=== PATIENT | male | born 1960 | race African-American/Black ===

== ENCOUNTER 2022-02-04 16:29 | Inpatient (IN) | payer MEDICARE, MEDICAID ==
[~2022-02-04] VITALS: Ht 170.2 cm; Wt 95.7 kg
[~2022-02-04 16:29] MED LIST: ATOR20TA65 MT; CALC667C PO; CARV12.545 PO; DILT240T12 MT; DOXA1TAB2 MT; FOLI-43 PO; HYDR-4135 PO; HYDR100T26 PO; SODI650T PO
[2022-02-04 17:11] LABS: BASOPHILS % 0.3 % (0.0-2.0); EOSINOPHILS % 1.2 % (0.0-5.0); HEMATOCRIT. 23.8 % (42.0-52.0); HEMOGLOBIN. 8.1 g/dL (14.0-18.0); LYMPHOCYTES % 11.4 % (20.0-50.0); MEAN CORPUSCULAR HEMOGLOBIN 29.4 pg (28.0-32.0); MEAN CORPUSCULAR VOLUME 86.2 fL (80.0-94.0); MEAN PLATELET VOLUME 9.1 fl (7.4-10.4); NEUTROPHILS % 81.1 % (40.0-76.0); PLATELET 164 x1000/uL (130-400); RED BLOOD CELL COUNT 2.76 mill/uL (4.7-6.1); RED CELL DISTRIBUTION WIDTH 17.7 % (11.6-14.6)
[2022-02-04 17:17] LABS: CHLORIDE 101 mEq/L (98-107)
[2022-02-05] MEDS ORDERED: ASPIRIN 81MG TABLET PO ONE (04:00)
[2022-02-05] MEDS ORDERED: NITROGLYCERIN 0.4MG TABLET SL SL PRN (04:00)
[2022-02-05] MEDS ORDERED: DEXTROSE 50% WATER 50ML SYRINGE IV PRN (05:00)
[2022-02-05 05:03] VITALS: BP 133/56
[2022-02-05 05:22] VITALS: BP 133/56
[2022-02-05] MEDS: HYDRALAZINE HCL 50MG TABLET PO SCH ×3 (06:03→22:00)
[2022-02-05] MEDS: BLOOD SUGAR DIAGNOSTIC STRIP TEST SCH ×2 (06:06→11:41)
[2022-02-05] MEDS: INSULIN LISPRO 100 UNITS/ML SUBCUT SCH ×2 (06:06→11:41)
[2022-02-05 08:00] VITALS: BP 135/58
[2022-02-05] MEDS: CARVEDILOL 12.5MG TABLET PO SCH ×2 (09:35→21:00)
[2022-02-05] MEDS: DILTIAZEM HCL 120MG CAPSULE CD 24HR PO SCH (09:35)
[2022-02-05] MEDS: FOLIC ACID 1MG TABLET PO SCH (09:35)
[2022-02-05 09:59] LABS: BASOPHILS % 0.5 % (0.0-2.0); EOSINOPHILS % 1.8 % (0.0-5.0); HEMATOCRIT. 24.6 % (42.0-52.0); HEMOGLOBIN. 8.2 g/dL (14.0-18.0); LYMPHOCYTES % 9.1 % (20.0-50.0); MEAN CORPUSCULAR HEMOGLOBIN 28.8 pg (28.0-32.0); MEAN PLATELET VOLUME 9.4 fl (7.4-10.4); MONOCYTES % 5.4 % (2.0-8.0); NEUTROPHILS % 83.2 % (40.0-76.0); PLATELET 164 x1000/uL (130-400); RED BLOOD CELL COUNT 2.83 mill/uL (4.7-6.1); RED CELL DISTRIBUTION WIDTH 17.5 % (11.6-14.6)
[2022-02-05 10:27] LABS: PHOSPHORUS 3.9 mg/dL (2.5-4.9)
[2022-02-05 12:00] VITALS: BP 140/69
[2022-02-05] MEDS ORDERED: LIDOCAINE HCL 1% 10 MG/ML 10ML VIAL ONE (13:31)
[2022-02-05 16:00] VITALS: BP 142/66
[2022-02-05] MEDS: FUROSEMIDE 100MG/10ML VIAL IVP SCH ×3 (16:16→21:00)
[2022-02-05] MEDS ORDERED: IPRATROPIUM/ALBUTEROL 0.5-3(2.5)MG/3ML NEB HHN PRN (17:30)
[2022-02-05 18:07] LABS: INR 1.2; PARTIAL THROMBOPLASTIN TIME 34.7 sec (23.4-31.0); PROTHROMBIN TIME 12.4 sec (9.6-11.0)
[2022-02-05 18:56] LABS: HEPATITIS B SURFACE ANTIGEN NEGATIVE
[2022-02-05 20:00] VITALS: BP 142/67
[2022-02-05] MEDS ORDERED: EPOETIN ALFA 10000UNITS/ML VIAL SUBCUT NR (21:00)
[2022-02-05] MEDS: DOXAZOSIN MESYLATE 2MG TABLET PO SCH (21:00)
[2022-02-05] MEDS: ATORVASTATIN CALCIUM 20MG TABLET PO SCH (21:00)
[2022-02-06] VITALS: BP 148/67
[2022-02-06 04:00] VITALS: BP 141/54
[2022-02-06] MEDS: HYDRALAZINE HCL 50MG TABLET PO SCH ×3 (05:19→21:35)
[2022-02-06 07:17] LABS: CLARITY URINE CLOUDY (CLEAR); COLOR URINE YELLOW (YELLOW); KETONES URINE TRACE (NEGATIVE); LEUKOCYTE ESTERASE URINE NEGATIVE (NEGATIVE); NITRITE URINE NEGATIVE (NEGATIVE); OCCULT BLOOD URINE NEGATIVE (NEGATIVE); PROTEIN URINE 3+ (NEGATIVE); SPECIFIC GRAVITY URINE 1.017 (1.005-1.030); UROBILINOGEN URINE 0.2 E.U./dL (0.2-1.0)
[2022-02-06 07:20] LABS: BASOPHILS % 0.4 % (0.0-2.0); EOSINOPHILS % 1.5 % (0.0-5.0); HEMATOCRIT. 24.1 % (42.0-52.0); HEMOGLOBIN. 7.8 g/dL (14.0-18.0); LYMPHOCYTES % 10.2 % (20.0-50.0); MEAN CORPUSCULAR HEMOGLOBIN 28.1 pg (28.0-32.0); MEAN CORPUSCULAR VOLUME 86.6 fL (80.0-94.0); MEAN PLATELET VOLUME 9.4 fl (7.4-10.4); MONOCYTES % 6.2 % (2.0-8.0); NEUTROPHILS % 81.7 % (40.0-76.0); PLATELET 159 x1000/uL (130-400); RED BLOOD CELL COUNT 2.78 mill/uL (4.7-6.1); RED CELL DISTRIBUTION WIDTH 17.5 % (11.6-14.6)
[2022-02-06 07:45] LABS: PHOSPHORUS 3.7 mg/dL (2.5-4.9)
[2022-02-06 08:00] VITALS: BP 134/58
[2022-02-06] MEDS: CARVEDILOL 12.5MG TABLET PO SCH ×2 (09:00→21:33)
[2022-02-06] MEDS ORDERED: POTASSIUM CHLORIDE 20MEQ TABLET SR PO NR (09:00)
[2022-02-06] MEDS: DILTIAZEM HCL 120MG CAPSULE CD 24HR PO SCH (09:00)
[2022-02-06] MEDS: FOLIC ACID 1MG TABLET PO SCH (09:11)
[2022-02-06] MEDS: FUROSEMIDE 100MG/10ML VIAL IVP SCH ×2 (09:12→21:33)
[2022-02-06] MEDS ORDERED: LACTULOSE 20G/30ML UDC PO NR (11:00)
[2022-02-06 15:57] VITALS: BP 139/58
[2022-02-06 20:00] VITALS: BP 166/67
[2022-02-06] MEDS ORDERED: EPOETIN ALFA 10000UNITS/ML VIAL SUBCUT SCH (21:00)
[2022-02-06] MEDS: EPOETIN ALFA-EPBX 10,000 UNIT/ML VIAL SUBCUT SCH (21:33)
[2022-02-06] MEDS: ATORVASTATIN CALCIUM 20MG TABLET PO SCH (21:33)
[2022-02-06] MEDS: DOXAZOSIN MESYLATE 2MG TABLET PO SCH (21:35)
[2022-02-07] VITALS: BP 158/56
[2022-02-07 04:00] VITALS: BP 156/57
[2022-02-07] MEDS: HYDRALAZINE HCL 50MG TABLET PO SCH (06:08)
[2022-02-07 08:00] VITALS: BP 158/63
[2022-02-07 08:09] LABS: BASOPHILS % 0.6 % (0.0-2.0); EOSINOPHILS % 1.2 % (0.0-5.0); HEMATOCRIT. 23.8 % (42.0-52.0); LYMPHOCYTES % 10.1 % (20.0-50.0); MEAN CORPUSCULAR HEMOGLOBIN 28.8 pg (28.0-32.0); MEAN PLATELET VOLUME 9.3 fl (7.4-10.4); MONOCYTES % 6.4 % (2.0-8.0); NEUTROPHILS % 81.7 % (40.0-76.0); PLATELET 179 x1000/uL (130-400); RED BLOOD CELL COUNT 2.77 mill/uL (4.7-6.1); RED CELL DISTRIBUTION WIDTH 17.5 % (11.6-14.6)
[2022-02-07] MEDS: FUROSEMIDE 100MG/10ML VIAL IVP SCH ×2 (08:49→21:14)
[2022-02-07] MEDS: CARVEDILOL 12.5MG TABLET PO SCH ×2 (08:49→21:15)
[2022-02-07] MEDS: DILTIAZEM HCL 120MG CAPSULE CD 24HR PO SCH (08:50)
[2022-02-07] MEDS: FOLIC ACID 1MG TABLET PO SCH (08:50)
[2022-02-07 09:26] LABS: PHOSPHORUS 2.7 mg/dL (2.5-4.9)
[2022-02-07 12:00] VITALS: BP 165/52
[2022-02-07 16:00] VITALS: BP 152/58
[2022-02-07 20:00] VITALS: BP 174/60
[2022-02-07] MEDS: ATORVASTATIN CALCIUM 20MG TABLET PO SCH (21:14)
[2022-02-07] MEDS: DOXAZOSIN MESYLATE 2MG TABLET PO SCH (23:30)
[2022-02-07] MEDS: HYDRALAZINE HCL 100MG TABLET PO SCH (23:30)
[2022-02-08] VITALS (7 sets, daily range): BP systolic 133–166; BP diastolic 59–107
[2022-02-08 06:03] LABS: BASOPHILS % 0.4 % (0.0-2.0); EOSINOPHILS % 1.4 % (0.0-5.0); HEMATOCRIT. 23.7 % (42.0-52.0); HEMOGLOBIN. 7.9 g/dL (14.0-18.0); LYMPHOCYTES % 14.3 % (20.0-50.0); MEAN CORPUSCULAR HEMOGLOBIN 28.7 pg (28.0-32.0); MEAN CORPUSCULAR VOLUME 86.2 fL (80.0-94.0); MEAN PLATELET VOLUME 9.3 fl (7.4-10.4); MONOCYTES % 8.3 % (2.0-8.0); NEUTROPHILS % 75.6 % (40.0-76.0); PLATELET 158 x1000/uL (130-400); RED BLOOD CELL COUNT 2.75 mill/uL (4.7-6.1); RED CELL DISTRIBUTION WIDTH 17.5 % (11.6-14.6)
[2022-02-08] MEDS: HYDRALAZINE HCL 100MG TABLET PO SCH ×3 (06:23→21:56)
[2022-02-08 06:46] LABS: PHOSPHORUS 2.8 mg/dL (2.5-4.9)
[2022-02-08] MEDS: FUROSEMIDE 100MG/10ML VIAL IVP SCH ×2 (08:56→20:53)
[2022-02-08] MEDS: DILTIAZEM HCL 120MG CAPSULE CD 24HR PO SCH (08:57)
[2022-02-08] MEDS: FOLIC ACID 1MG TABLET PO SCH (08:57)
[2022-02-08] MEDS: CARVEDILOL 12.5MG TABLET PO SCH ×2 (08:57→20:54)
[2022-02-08] MEDS: DOXAZOSIN MESYLATE 2MG TABLET PO SCH (20:53)
[2022-02-08] MEDS: ATORVASTATIN CALCIUM 20MG TABLET PO SCH (20:54)
[2022-02-09] VITALS: BP 156/62
[2022-02-09 04:00] VITALS: BP 167/56
[2022-02-09] MEDS: HYDRALAZINE HCL 100MG TABLET PO SCH ×3 (05:14→21:30)
[2022-02-09 06:37] LABS: BASOPHILS % 0.6 % (0.0-2.0); EOSINOPHILS % 2.2 % (0.0-5.0); HEMATOCRIT. 23.4 % (42.0-52.0); HEMOGLOBIN. 7.6 g/dL (14.0-18.0); LYMPHOCYTES % 14.8 % (20.0-50.0); MEAN CORPUSCULAR HEMOGLOBIN 28.7 pg (28.0-32.0); MEAN CORPUSCULAR VOLUME 87.8 fL (80.0-94.0); MEAN PLATELET VOLUME 8.8 fl (7.4-10.4); MONOCYTES % 7.4 % (2.0-8.0); PLATELET 171 x1000/uL (130-400); RED BLOOD CELL COUNT 2.66 mill/uL (4.7-6.1); RED CELL DISTRIBUTION WIDTH 17.6 % (11.6-14.6)
[2022-02-09 07:14] LABS: PHOSPHORUS 2.6 mg/dL (2.5-4.9)
[2022-02-09 08:00] VITALS: BP 155/72
[2022-02-09] MEDS: FUROSEMIDE 100MG/10ML VIAL IVP SCH ×2 (08:17→20:45)
[2022-02-09] MEDS: CARVEDILOL 12.5MG TABLET PO SCH ×2 (08:18→20:45)
[2022-02-09] MEDS: FOLIC ACID 1MG TABLET PO SCH (08:18)
[2022-02-09] MEDS: DILTIAZEM HCL 120MG CAPSULE CD 24HR PO SCH (08:19)
[2022-02-09 12:00] VITALS: BP 155/82
[2022-02-09 16:00] VITALS: BP 133/61
[2022-02-09 18:15] LABS: BG BASE EXCESS 6.1 mmol/L (-2.0-2.0); BG CARBOXYHEMOGLOBIN 0.8 % (0.5-1.5); BG DEOXYHEMOGLOBIN 18.8 % (0.0-5.0); BG FRACTION INSPIRED OXYGEN 21; BG HCO3 ACT 30.6 mmol/L (22.0-26.0); BG METHEMOGLOBIN 0.3 % (0.0-1.5); BG OXYHEMOGLOBIN 80.1 % (94.0-97.0); BG PCO2 44.4 mmHg (35.0-45.0); BG PH 7.456 (7.350-7.450); BG PO2 45.2 mmHg (75.0-100.0); BG SAMPLE SITE RIGHT RADIAL; BG TOTAL HEMOGLOBIN 8.9 g/dL (12.0-18.0); BG VENT MODE ROOM AIR
[2022-02-09] MEDS ORDERED: POTASSIUM CHLORIDE 20MEQ TABLET SR PO NR (19:51)
[2022-02-09 20:00] VITALS: BP 152/61
[2022-02-09] MEDS: ATORVASTATIN CALCIUM 20MG TABLET PO SCH (20:44)
[2022-02-09] MEDS: DOXAZOSIN MESYLATE 2MG TABLET PO SCH (20:44)
[2022-02-09] MEDS: EPOETIN ALFA-EPBX 10,000 UNIT/ML VIAL SUBCUT SCH (21:30)
[2022-02-10] VITALS: BP 139/52
[2022-02-10 04:00] VITALS: BP 147/54
[2022-02-10] MEDS: HYDRALAZINE HCL 100MG TABLET PO SCH ×3 (05:19→22:04)
[2022-02-10 07:45] LABS: BASOPHILS % 0.7 % (0.0-2.0); EOSINOPHILS % 2.4 % (0.0-5.0); HEMATOCRIT. 23.6 % (42.0-52.0); HEMOGLOBIN. 7.8 g/dL (14.0-18.0); MEAN CORPUSCULAR HEMOGLOBIN 28.8 pg (28.0-32.0); MEAN CORPUSCULAR VOLUME 87.3 fL (80.0-94.0); MEAN PLATELET VOLUME 8.9 fl (7.4-10.4); MONOCYTES % 7.8 % (2.0-8.0); NEUTROPHILS % 74.1 % (40.0-76.0); PLATELET 185 x1000/uL (130-400); RED BLOOD CELL COUNT 2.71 mill/uL (4.7-6.1); RED CELL DISTRIBUTION WIDTH 17.5 % (11.6-14.6)
[2022-02-10 07:55] VITALS: BP 139/60
[2022-02-10] MEDS: FUROSEMIDE 100MG/10ML VIAL IVP SCH ×2 (08:16→21:59)
[2022-02-10] MEDS: FOLIC ACID 1MG TABLET PO SCH (08:17)
[2022-02-10] MEDS: CARVEDILOL 12.5MG TABLET PO SCH ×2 (08:17→21:59)
[2022-02-10] MEDS: DILTIAZEM HCL 120MG CAPSULE CD 24HR PO SCH (08:17)
[2022-02-10 08:31] LABS: PHOSPHORUS 2.2 mg/dL (2.5-4.9)
[2022-02-10 11:17] VITALS: BP 152/54
[2022-02-10 16:07] VITALS: BP 143/50
[2022-02-10 20:00] VITALS: BP 155/59
[2022-02-10] MEDS: ATORVASTATIN CALCIUM 20MG TABLET PO SCH (21:59)
[2022-02-10] MEDS: DOXAZOSIN MESYLATE 2MG TABLET PO SCH (22:00)
[2022-02-11] VITALS (18 sets, daily range): BP systolic 138–185; BP diastolic 50–75
[2022-02-11] MEDS: HYDRALAZINE HCL 100MG TABLET PO SCH ×3 (06:00→21:00)
[2022-02-11] MEDS ORDERED: CEFAZOLIN 1000MG PREMIX 50 ML IV NR (08:00)
[2022-02-11] MEDS ORDERED: FENTANYL CITRATE/PF 50MCG/ML 2ML VIAL ONE (08:06)
[2022-02-11 08:27] LABS: BASOPHILS % 0.7 % (0.0-2.0); EOSINOPHILS % 2.6 % (0.0-5.0); HEMATOCRIT. 24.8 % (42.0-52.0); HEMOGLOBIN. 8.2 g/dL (14.0-18.0); LYMPHOCYTES % 14.8 % (20.0-50.0); MEAN CORPUSCULAR HEMOGLOBIN 28.9 pg (28.0-32.0); MEAN CORPUSCULAR VOLUME 87.7 fL (80.0-94.0); MEAN PLATELET VOLUME 8.7 fl (7.4-10.4); MONOCYTES % 7.1 % (2.0-8.0); NEUTROPHILS % 74.8 % (40.0-76.0); PLATELET 177 x1000/uL (130-400); RED BLOOD CELL COUNT 2.83 mill/uL (4.7-6.1); RED CELL DISTRIBUTION WIDTH 17.8 % (11.6-14.6)
[2022-02-11] MEDS ORDERED: FENTANYL CITRATE/PF 50MCG/ML 2ML VIAL IV ONE (08:45)
[2022-02-11 08:48] LABS: PHOSPHORUS 2.9 mg/dL (2.5-4.9)
[2022-02-11] MEDS: FUROSEMIDE 100MG/10ML VIAL IVP SCH ×2 (09:00→21:01)
[2022-02-11] MEDS: FOLIC ACID 1MG TABLET PO SCH (09:00)
[2022-02-11] MEDS: CARVEDILOL 12.5MG TABLET PO SCH ×2 (09:00→20:59)
[2022-02-11] MEDS: DILTIAZEM HCL 120MG CAPSULE CD 24HR PO SCH (09:00)
[2022-02-11] MEDS ORDERED: LIDOCAINE HCL 1% 10 MG/ML 10ML VIAL ONE (09:40)
[2022-02-11] MEDS: DOXAZOSIN MESYLATE 2MG TABLET PO SCH (21:00)
[2022-02-11] MEDS: ATORVASTATIN CALCIUM 20MG TABLET PO SCH (21:00)
[2022-02-11] MEDS: EPOETIN ALFA-EPBX 10,000 UNIT/ML VIAL SUBCUT SCH (21:51)
[2022-02-12] VITALS: BP 155/53
[2022-02-12 04:00] VITALS: BP 163/60
[2022-02-12 04:46] VITALS: BP 153/59
[2022-02-12] MEDS: HYDRALAZINE HCL 100MG TABLET PO SCH (06:25)
[2022-02-12] MEDS: FOLIC ACID 1MG TABLET PO SCH (08:48)
[2022-02-12] MEDS: CARVEDILOL 12.5MG TABLET PO SCH (08:48)
[2022-02-12] MEDS: DILTIAZEM HCL 120MG CAPSULE CD 24HR PO SCH (08:49)
== END 2022-02-12 09:28 | disposition home or self-care (01) | DRG 673 ==
LOC: ER 16:29 → EDBEDREQ 21:09 → MICUSO 23:16 → EDBEDREQTM 23:47 → EDBEDREQ 23:47 → 7EST 02-05 03:34 → 8WST 02-07 16:19
PROVIDERS: ADMIT Internal Medicine; ATTEND Internal Medicine
PROC: 5A1D70Z Performance of Urinary Filtration, Intermittent, Less than 6 Hours Per Day (ICD-10-PCS; principal; 2022-02-05)
PROC: 02HV33Z Insertion of Infusion Device into Superior Vena Cava, Percutaneous Approach (ICD-10-PCS; 2022-02-05)
PROC: B518ZZA Fluoroscopy of Superior Vena Cava, Guidance (ICD-10-PCS; 2022-02-05)
PROC: B548ZZA Ultrasonography of Superior Vena Cava, Guidance (ICD-10-PCS; 2022-02-05)
PROC: 5A1D70Z Performance of Urinary Filtration, Intermittent, Less than 6 Hours Per Day (ICD-10-PCS; 2022-02-06)
PROC: 5A1D70Z Performance of Urinary Filtration, Intermittent, Less than 6 Hours Per Day (ICD-10-PCS; 2022-02-09)
PROC: 0JH63XZ Insertion of Tunneled Vascular Access Device into Chest Subcutaneous Tissue and Fascia, Percutaneous Approach (ICD-10-PCS; 2022-02-11)
PROC: 5A1D70Z Performance of Urinary Filtration, Intermittent, Less than 6 Hours Per Day (ICD-10-PCS; 2022-02-11)
PROC: 02PYX3Z Removal of Infusion Device from Great Vessel, External Approach (ICD-10-PCS; 2022-02-11)
PROC: 02HV33Z Insertion of Infusion Device into Superior Vena Cava, Percutaneous Approach (ICD-10-PCS; 2022-02-11)
PROC: B518ZZA Fluoroscopy of Superior Vena Cava, Guidance (ICD-10-PCS; 2022-02-11)
DX: N17.9 Acute kidney failure, unspecified (principal); I50.33 Acute on chronic diastolic (congestive) heart failure; J96.20 Acute and chronic respiratory failure, unspecified whether with hypoxia or hypercapnia; I13.2 Hypertensive heart and chronic kidney disease with heart failure and with stage 5 chronic kidney disease, or end stage renal disease; I69.354 Hemiplegia and hemiparesis following cerebral infarction affecting left non-dominant side; J84.9 Interstitial pulmonary disease, unspecified; N18.6 End stage renal disease; N25.81 Secondary hyperparathyroidism of renal origin; D64.9 Anemia, unspecified; E11.22 Type 2 diabetes mellitus with diabetic chronic kidney disease; E66.9 Obesity, unspecified; E78.5 Hyperlipidemia, unspecified; E11.621 Type 2 diabetes mellitus with foot ulcer; I89.0 Lymphedema, not elsewhere classified; R07.9 Chest pain, unspecified; L97.529 Non-pressure chronic ulcer of other part of left foot with unspecified severity; E11.51 Type 2 diabetes mellitus with diabetic peripheral angiopathy without gangrene; Z20.822 Contact with and (suspected) exposure to COVID-19; S80.821A Blister (nonthermal), right lower leg, initial encounter; X58.XXXA Exposure to other specified factors, initial encounter; Y93.89 Activity, other specified; Y92.89 Other specified places as the place of occurrence of the external cause; Y99.8 Other external cause status; Z82.49 Family history of ischemic heart disease and other diseases of the circulatory system; Z83.3 Family history of diabetes mellitus; Z99.2 Dependence on renal dialysis; Z68.33 Body mass index [BMI] 33.0-33.9, adult; Z88.6 Allergy status to analgesic agent; Z79.899 Other long term (current) drug therapy; Z71.3 Dietary counseling and surveillance; Z89.422 Acquired absence of other left toe(s); Z89.431 Acquired absence of right foot
CPT/HCPCS: 36415; 36556; 36558; 36589; 36600; 71045; 76770; 76937; 77001; 80048; 80053; 80061; 81003; 82375; 82550; 82805; 82962; 83036; 83735; 83880; 84100; 84484; 85025; 86705; 86706; 86709; 86803; 87340; 87426; 93005; 97162; 99152; 99153; 99285; C1750; C1752; C1769; J0690; J0885; J1940; J3010; J3490; U0003; U0005; G0500